=== PATIENT | female | born 1985 | race Caucasian/White ===

== ENCOUNTER 2020-02-14 08:35 | Emergency (ER) | payer SELFPAY ==
[~2020-02-14] VITALS: Ht 157.5 cm; Wt 77.1 kg
--- NOTE | 2020-02-14 08:57 | NUR ---
PT BROUGHT BACK FROM TRIAGE WITH CHIEF COMPLAINT OF RLQ ABD PAIN SINCE TUESDAY. PT DENIES N/V, CP, SOB, RECENT TRAUMA. CERVICAL BIOPSY 11/04
--- NOTE | 2020-02-14 09:21 | NUR ---
PT refusing pain meds at this time, aware that they are available if needed.
[2020-02-14] MEDS ORDERED: ONDANSETRON 2MG/ML, 2ML IVPush ONE (09:30)
[2020-02-14] MEDS ORDERED: SODIUM CHLORIDE FLUSH 10ML SYR IVF ONE (09:30)
[2020-02-14] MEDS ORDERED: MORPHINE SULFATE 4 MG/ML, 1ML IVPush PRN (09:30)
[2020-02-14 09:34] LABS: MICROSCOPIC AUTO
[2020-02-14 09:54] LABS: BASOPHILS % (AUTO) 1 % (0-1); EOSINOPHILS % (AUTO) 1 % (1-7); LYMPHOCYTES % (AUTO) 20 % (22-44); MEAN CORPUSCULAR HEMOGLOBIN 32.6 pg (27.0-34.8); MEAN CORPUSCULAR HGB CONC 33.3 g/dL (32.4-35.8); MONOCYTES % (AUTO) 7 % (2-9); NEUTROPHILS % (AUTO) 71 % (42-75); PLATELET COUNT 217 x10^3/uL (130-400); RED CELL DISTRIBUTION WIDTH 12.6 % (9.6-15.2)
[2020-02-14 09:59] LABS: MD NO
[2020-02-14 10:00] LABS: ALANINE AMINOTRANSFERASE 25 U/L (12-78); ALBUMIN 3.8 g/dL (3.4-5.0); ANION GAP 5 mmol/L (5-15); CALCIUM 9.2 mg/dL (8.5-10.1); CHLORIDE 112 mmol/L (98-107); CREATININE 0.77 mg/dL (0.55-1.02)
[2020-02-14] MEDS ORDERED: CEFTRIAXONE 1,000 MG IM ONE (10:00)
[2020-02-14 10:04] LABS: ALKALINE PHOSPHATASE 56 U/L (45-117); BILIRUBIN,TOTAL 0.4 mg/dL (0.2-1.0); TOTAL PROTEIN 7.4 g/dL (6.4-8.2)
--- NOTE | 2020-02-14 10:15 | NUR ---
PT TO CT
[2020-02-14] MEDS ORDERED: OMNIPAQUE 350 MG/ML, 100ML BOTTLE ONE (10:36)
--- NOTE | 2020-02-14 10:48 | NUR ---
PT RESTING IN BED, CALL LIGHT IN REACH
[2020-02-14 10:49] VITALS: BP 112/73
[2020-02-14] MEDS ORDERED: CEFTRIAXONE PMX 1GM/50ML 50 ML ONE (10:51)
[2020-02-14] MEDS ORDERED: CEFTRIAXONE PMX 1GM/50ML 50 ML IV ONE (11:00)
--- NOTE | 2020-02-14 11:24 | NUR ---
DC instructions reviewed
== END 2020-02-14 11:26 | disposition home or self-care (01) ==
LOC: ED 08:57
DX: N30.00 Acute cystitis without hematuria (principal)
CPT/HCPCS: 36415; 74177; 80053; 81001; 83690; 84703; 85025; 87077; 87086; 96365; 99284; J0696; Q9967; 87186